=== PATIENT | female | born 1945 | race Caucasian/White ===

== ENCOUNTER 2021-01-25 06:24 | Inpatient (IN) ==
--- NOTE | 2020-12-28 09:11 | History & Physical Report ---
Date of Service December 28, 2020 Procedure: Bilateral total knee replacements Date of Surgery: 01-25-21 Assessment & Plan (1) Degenerative arthritis of knee, bilateral: Plan: Risks and benefits of procedure discussed in detail today, patient would like to proceed with Bilateral total knee replacements at [facility] as scheduled. will obtain medical clearance prior to surgery as well as obtain PATs at [facility]. Will place on Xarelto x 1 month post op, f/u 2 weeks post op for routine post-operative care and x-ray, sooner if having any problems. she would like to try to go to [facility] after her surgery. At this point in time, has failed conservative measures and would like to proceed with surgical intervention. The risks and benefits have been discussed including, but not limited to, risk of infection, nerve injury, stiffness, loss of motion, failure to improve, etc. Reasonable outcomes and options of treatment were discussed. An explanation of appropriate alternatives to the procedure that may be advantageous were discussed and their risks and benefits, as well as the risks and benefits of not proceeding with treatment. I offered to answer any additional inquiries concerning the treatment involved. All the patient's questions were answered. The patient is agreeable, understanding of the treatment plan and alternatives, and wishes to proceed with the treatment plan. History of Present Illness Chief Complaint: bilateral knee pain Primary Care Provider: Dong Lopez Florencia Pulido is a 75 year old female who complains of bilateral knee pain, presents for pre-op evaluation prior to bilateral total knee replacements by Dr Nolasco at [facility]. she complains of pain, decreased range of motion and stiffness in both of her knees. Currently the patient states that the symptoms are moderate-severe. The pain is described as aching, sharp and throbbing. Her symptoms are aggravated by ascending stairs, daily activities, first steps while awake walking. Prior NSAIDs include IBU and Aleve. she has been treated with previous visco and cortisone injections in the past without much relief. Allergies Allergy/AdvReac Type Severity Reaction Status Date / Time adhesive AdvReac Unknown Skin Verified 11/17/20 12:08 irritation with tape Home Medications Medication Instructions Recorded Confirmed Type Bone Health Packet Otc 1 dose PO QPM 11/16/20 11/16/20 History Calcium Lactate Otc 1 tab PO QPM 11/16/20 11/16/20 History Cyrupa Otc 2 tab PO QPM 11/16/20 11/16/20 History Dnenamin Otc 2 tab PO QPM 11/16/20 11/16/20 History Iodine Otc 2 tab PO QPM 11/16/20 11/16/20 History Ligaplex Otc 3 tab PO QPM 11/16/20 11/16/20 History Simplex Multivitamin Otc 2 tab PO QPM 11/16/20 11/16/20 History Soy Lecithin Otc 3 tab PO QPM 11/16/20 11/16/20 History Tuna Oil Otc 2 tab PO QPM 11/16/20 11/16/20 History Women's Mineral Otc 2 tab PO QPM 11/16/20 11/16/20 History anastrozole 1 mg tablet (Arimidex) 1 mg PO QPM 11/16/20 11/16/20 History aspirin 325 mg tablet 325 mg PO QPM 11/16/20 11/16/20 History duloxetine 30 mg capsule,delayed 90 mg PO QPM 11/16/20 11/16/20 History release (Cymbalta) thyroid (pork) 30 mg tablet 30 mg PO QAM 11/16/20 11/16/20 History ([place] Thyroid) Past Med/Surg History Medical History Anxiety Arthritis Asthma Stable, controlled Cancer Left breast s/p left breast lumptectomy (No arm restrictions per pt) Depression Factor 5 Leiden mutation, heterozygous Dx through genetic testing (d/t family hx) Hiatal hernia Hypothyroidism Obesity Surgical History History of arthroscopy R/L knee History of colonoscopy 2019 History of hysterectomy History of lumpectomy of left breast History of thumb surgery Family History Mother Family history of esophageal cancer Social History Smoking Status: Former smoker Second Hand Exposure: Yes (PARENTS SMOKED); Hx Alcohol Use: Yes Alcohol type: beer Hx Substance Use: No Preferred Language: Greek Communication Ability: Effective 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 Required: No Beliefs That Will Affect Care: None Current Living Situation: Spouse current occupational status: retired current occupation: RETIRED [employer] Feels Safe at Home: Yes Assistive Devices: Brace/Splint/Immobilizer and Glasses Review of Systems Review of Systems: All systems reviewed & are unremarkable except as noted in HPI & below Constitutional: no fever, no chills and no sweats Respiratory: no cough and no dyspnea Cardiovascular: no chest pain, no dyspnea and no orthopnea Gastrointestinal: no abdominal pain, no nausea and no vomiting Musculoskeletal: as per Subjective / HPI Physical Exam Physical Exam: HT: 4ft 11in WT: 72.8kg Constitutional: WD/WN, vitals as above no acute distress Respiratory: normal respiratory effort, lungs clear to auscultation no respiratory distress, no labored breathing and does not use accessory muscles Cardiovascular: RRR, no murmur, no edema Gastrointestinal (Abdomen): normal bowel sounds, soft, nontender, no hepatosplenomegaly Musculoskeletal: Bilateral knee Physical exam Overall patient has varus alignment bilaterally, there is no atrophy or ecchymosis noted, +1 suprapatellar effusion in both knees, positive tenderness to both medial and lateral joint lines right knee, more medial sided tenderness to the left knee. negative patellar apprehension, positive crepitation noted to both knees with active ROM. bilateral knees stable to valgus and varus stress, yahir negative, posterior drawer negative. Range of motion right knee 0/3/110, left knee 0/3/115. lower extremities are neurovascularly intact, calf soft and non tender, DP pulse +2 bilaterally. Results & Data Results & Data ([facility]) Diagnostic Findings Bilateral Knee X-ray: bilateral knee series confirm advanced degenerative changes bilateral knees, showing joint space narrowing, osteophyte formation and subchondral sclerosis. no acute bony pathology noted.
--- NOTE | 2021-01-17 11:23 | Anesthesiology Consultation ---
Date of Service January 17, 2021 Assessment & Plan (1) Encounter for pre-operative examination: Chart Review Chart Review: Acceptable Risk for Surgery (pending preop Covid testing result and DOS labs ) and Patient NOT seen in Pre Admission Testing -Preop labs out of date- will order CBC with diff, PRP and coags for DOS. Per nursing assessment 01/16/2021, patient resides in [facility]. 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 Traveled to [facility] 2-3 weeks ago to shop and visit family. Also traveled to [facility] and [facility] 2-3 weeks ago to visit family. No known Covid positive contacts or Covid related symptoms. No known Covid infection in the past 90 days. Patient is vaccinated for Covid. Preop Covid testing scheduled 01/23/21= will await results Per PCP note 12/13/2020 = " patient was seen on 12/11/2020 and has been found to be medically cleared for the proposed surgery." History Surgery Operation Date: 01/25/21 08:15 Proposed Procedures p Left Knee Total Knee Arthroplasty, Right Knee Total Knee Arthroplasty - Butch Nolasco DO Height/Weight Height: 4 ft 11 in Weight: 74.843 kg Allergies Allergy/AdvReac Type Severity Reaction Status Date / Time adhesive AdvReac Unknown Skin Verified 01/16/21 07:57 irritation with tape Medications Home Medications Medication Instructions Recorded Confirmed Last Taken Bone Health Packet Otc 1 dose PO QPM 11/16/20 01/16/21 Unknown Calcium Lactate Otc 1 tab PO QPM 11/16/20 01/16/21 Unknown Cyrupa Otc 2 tab PO QPM 11/16/20 01/16/21 Unknown Dnenamin Otc 2 tab PO QPM 11/16/20 01/16/21 Unknown Iodine Otc 2 tab PO QPM 11/16/20 01/16/21 Unknown Ligaplex Otc 3 tab PO QPM 11/16/20 01/16/21 Unknown Simplex Multivitamin Otc 2 tab PO QPM 11/16/20 01/16/21 Unknown Soy Lecithin Otc 3 tab PO QPM 11/16/20 01/16/21 Unknown Tuna Oil Otc 2 tab PO QPM 11/16/20 01/16/21 Unknown Women's Mineral Otc 2 tab PO QPM 11/16/20 01/16/21 Unknown anastrozole 1 mg tablet (Arimidex) 1 mg PO QPM 11/16/20 01/16/21 Unknown aspirin 325 mg tablet 325 mg PO QPM 11/16/20 01/16/21 Unknown duloxetine 30 mg capsule,delayed 90 mg PO QPM 11/16/20 01/16/21 Unknown release (Cymbalta) thyroid (pork) 30 mg tablet 30 mg PO QAM 11/16/20 01/16/21 Unknown ([place] Thyroid) Cbd Oil Otc 1 dose TOPICAL QAM 01/16/21 01/16/21 Unknown Past Medical History Medical History Anxiety Asthma A CHILD-NO INHALERS ADULT-Stable, controlled Cancer Left breast s/p left breast lumptectomy (No arm restrictions per pt) Depression Factor 5 Leiden mutation, heterozygous Dx through genetic testing (d/t family hx) GERD (gastroesophageal reflux disease) UNDER CONTROL Hiatal hernia Hypothyroidism Obesity Past Family History Family History Mother Family history of esophageal cancer Past Surgical History Surgical History History of anesthesia reaction EXTREME HEADACHE, RUNNY NOSE WITH LAST COLONOSCOPY 2019 GUCCI GASTRO History of arthroscopy R/L knee History of colonoscopy 2019 History of hysterectomy History of lumpectomy of left breast History of thumb surgery History of tonsillectomy Social History Smoking Status: Former smoker Do You Dip or Chew Tobacco: No Smoking End Date: QUIT 25 YRS AGO Hx Alcohol Use: Yes Alcohol type: beer alcohol intake frequency: a few times a month Hx Substance Use: No Testing Electrocardiogram Date: 11/21/20 Findings: + NSR @ (63 bpm) Normal EKG per cardio Chest X-Ray Date: 11/21/20 Trace bilateral pleural effusion. Linear density at bilateral lower lungs could represent atelectasis or scarring. (Report was forwarded to PCP for continuity of care per previous 11/21/20 anesthesia consultation)
[~2021-01-25 06:24] MED LIST: ACETAMINOPHEN 500 MG TAB PO SCH; CeleBREX 200 MG CAP PO SCH; FAMOTIDINE 20 MG TAB PO SCH; GABAPENTIN 300 MG CAP PO SCH; LR 500ML BOLUS, THEN 15ML/HR IV SCH; METOCLOPRAMIDE HCL 10 MG TABLET PO SCH; TRANEXAMIC ACID 1,000 MG **IV Intra-op IV SCH; TRANEXAMIC ACID 1,000 MG **IV Pre-op IV SCH; ceFAZolin 2000MG 2,000 MG/15 ML SYR IV SCH
[2021-01-25] MEDS ORDERED: EPINEPHrine INJ 1 MG/ML AMP ONE (06:36)
[2021-01-25] MEDS ORDERED: ROPIVACAINE 0.5% 5 MG/ML 30 ML VIAL ONE (06:36)
[2021-01-25] MEDS ORDERED: BUPIVACAINE 0.5 % 5 MG/1 ML PF 10ML VIAL ONE ×2 (06:36→08:49)
[2021-01-25 07:27] LABS: Basophils # (auto) 0.06 K/uL (0-0.2); Basophils % (auto) 1.2 %; Eosinophils # (auto) 0.26 K/uL (0-0.5); Hematocrit (blood only) 40.6 % (37-47); Hemoglobin 13.3 g/dL (12.0-16.0); Lymphocytes # (auto) 1.49 K/uL (1.2-3.4); Lymphocytes % (auto) 28.7 %; Mean Corpuscular Hemoglobin 30.4 pg (25-34); Mean Corpuscular Volume 92.7 fL (80-100); Mean Platelet Volume 9.5 fL (7.4-10.4); Monocytes # (auto) 0.47 K/uL (0.11-0.59); Neutrophils # (auto) 2.92 K/uL (1.4-6.5); Neutrophils % (auto) 56.1 %; Platelet Count 273 K/uL (130-400); RDW Coefficient of Variation 14.9 % (11.5-14.5); Red Blood Count 4.38 M/uL (4.2-5.4)
[2021-01-25 07:43] LABS: Partial Thromboplastin Time 26.1 Seconds (21.0-31.0); Prothrombin Time 9.8 Seconds (9.0-12.0)
[2021-01-25 07:45] LABS: BUN Creatinine Ratio 22.4 (10-20); Calcium 9.7 mg/dl (8.5-10.1); Creatinine Clr Calc Pharmacy 50.1 ml/min; Est GFR (African American) 76.1 ml/min; Est GFR (Non-African American) 65.6 ml/min; Potassium 4.1 mmol/L (3.5-5.1)
--- NOTE | 2021-01-25 08:39 | History & Physical Bridge Note ---
Date of Service January 25, 2021 History & Physical Bridge Note I have examined the patient, reviewed the History & Physical and in the interval since the performance of the History & Physical I have noted the following changes of clinical significance: no changes noted
[2021-01-25 08:41] LABS: Mean Corpuscular Hgb Conc 32.8 g/dL (32-36)
[2021-01-25] MEDS ORDERED: PROPOFOL IV EMULSION 10 MG/ML 20 ML VIAL IV ONE ×3 (08:45→10:21)
[2021-01-25] MEDS ORDERED: MIDAZOLAM HCL 1 MG/ML 2ML VIAL ONE (08:46)
[2021-01-25] MEDS ORDERED: fentaNYL citrate 100 MCG/2 ML VIAL ONE (08:46)
[2021-01-25] MEDS ORDERED: ATROPINE SULFATE 0.1 MG/ML 10ML SYR IV PRN (08:59)
[2021-01-25] MEDS ORDERED: ONDANSETRON INJ 2 MG/ML 2 ML VIAL IV PRN ×2 (08:59→15:00)
[2021-01-25] MEDS ORDERED: ePHEDrine sulfate 50 MG/ML AMP IV PRN (08:59)
[2021-01-25] MEDS ORDERED: HYDROmorphone INJ 1 MG/ML SYRINGE IV PRN (08:59)
[2021-01-25] MEDS ORDERED: fentaNYL citrate 100 MCG/2 ML VIAL IV PRN (08:59)
[2021-01-25] MEDS ORDERED: ORTHO JOINT ANESTHETIC ONE (09:42)
[2021-01-25] MEDS ORDERED: GLYCOPYRROLATE 0.2 MG/ML VIAL ONE (10:21)
[2021-01-25] MEDS: ROPIVACAINE 0.5% HCL/PF 150 MG, BUPIVACAINE 0.75% MPF 20 ML, EPINEPHrine 30MG/30ML (OR ... INFIL SCH ×2 (11:36)
--- NOTE | 2021-01-25 11:54 | Operative Report ---
Post Operative Report Pre & Post Diagnosis Operation Date: 01/25/21 08:45 Pre-Op Diagnosis: Left Knee Osteoarthritis, Right Knee Osteoarthritis Post-Op Diagnosis: Left Knee Osteoarthritis, Right Knee Osteoarthritis I identified the patient and participated in the time-out.: Yes Procedure Operation Date: 01/25/21 08:45 Actual Procedures p Left Knee Total Knee Arthroplasty, Right Knee Total Knee Arthroplasty(Bilateral) utilizing [employer]uent[employer] Nephew patient matched total knee arthroplasty size 3 femur 3 tibia right size 10 polytwenty 9 oval patella left femur size 3 tibia size 3 polysize 1229 oval patella- Butch Nolasco DO Surgeon Butch Nolasco DO C.O.D. Audit Clerk Jose VARGAS Estimated Blood Loss 5 Findings Consistent with Post-Op Diagnosis Patient presents with severe end-stage DJD bilateral knees for bilateral total knee arthroplasty she had [id number] varus alignment subchondral cystic changes marginal osteophytes with eburnated exposed bone bilaterally moderate to large Specimens Bone and cartilage Drains Medium bore Hemovac Anesthesia Type MAC Spinal Regional Complications none Disposition Accompanied Patient To Recovery: No Disposition: Recovery Room Indications Patient presents for bilateral total knee arthroplasty failing after failed attempted conservative management physical therapy anti-inflammatories relative rest activity modification corticosteroid injection viscosupplementation Description of Procedure After proper prepping and draping of the bilateral lower extremities, an anterior midline incision was made over the region of the extensor extensor mechanism of the left knee. After meticulous hemostasis was obtained and maintained in subcutaneous tissues a medial parapatellar incision was made The patella was subluxed lateralward the medial lateral gutter were cleaned from any hypertrophic synovitis and scar tissue of the distal femoral block was placed and the distal femoral osteotomy cut was made subsequently the chamfers anterior and posterior osteotomy cuts were made utilizing the 4-in-1 block the tibia was subsequently subluxed anteriorward medial and ateral meniscal remnants were excised in their entirety remnants of the anterior and posterior cruciate ligaments were excised in their entirety excellent exposure of the proximal t ibia was obtained the tibial osteotomy guide was placed on the proximal tibial osteotomy cut was made once again the knee was irrigated with copious amounts of sterile saline solution the patella was subsequently everted lateralward thickened scar tissue around the patella was removed the patella was subsequently cut utilizing a freehand technique and was drilled prepared for final preparation and placement of patella socially flexion-extension gaps were checked and the equal and symmetric trials were placed to the appropriate femoral and tibial trials with poly-spacer being placed for equal flexion and extension gaps and full range of motion including extension to 0 and flexion to 140 the trial components after having been taken to recovery range of motion was subsequently removed meticulous hemostasis was obtained and maintained subsequently a knee block injection of joint cocktail including ropivacaine 0.5% 150 mg. Bupivacaine 0.5% epinephrine 1-200,030 mL's toradol 30 mg dexamethasone 4 mg ketamine 10 mg clonidine 100 micrograms normal saline solution 30 mg was infiltrated into the soft tissues of the posterior knee medial lateral gutters and periosteal synovium special attention was paid to protect neurovascular structures at all times subsequently trial components having been removed the knee was irrigated with sterile saline solution. debris was removed the proximal tibia was subsequently prepared and was made ready for the placement of the tibial component tibial component was also cemented and tamped into position the femoral component was subsequently placed and cemented in the position the patellar component was subsequently cemented in position because hemostasis once again obtained and maintained wound having been thoroughly irrigated with debridement and debridement lavage was performed as well as a medial parapatellar incision closed with #1 Vicryl in interrupted fashion subcutaneous was closed with #2 Vicryl skin was closed with skin clips Next, an anterior midline incision was made over the region of the extensor extensor mechanism of the right knee. After meticulous hemostasis was obtained and maintained in subcutaneous tissues a medial parapatellar incision was made The patella was subluxed lateralward the medial lateral gutter were cleaned from any hypertrophic synovitis and scar tissue of the distal femoral block was placed and the distal femoral osteotomy cut was made subsequently the chamfers anterior and posterior osteotomy cuts were made utilizing the 4-in-1 block the tibia was subsequently subluxed anteriorward medial and ateral meniscal remnants were excised in their entirety remnants of the anterior and posterior cruciate ligaments were excised in their entirety excellent exposure of the proximal tibia was obtained the tibial osteotomy guide was placed on the proximal tibial osteotomy cut was made once again the knee was irrigated with copious amounts of sterile saline solution the patella was subsequently everted lateralward thickened scar tissue around the patella was removed the patella was subsequently cut utilizing a freehand technique and was drilled prepared for final preparation and placement of patella socially flexion-extension gaps were checked and the equal and symmetric trials were placed to the appropriate femoral and tibial trials with poly-spacer being placed for equal flexion and extension gaps and full range of motion including extension to 0 and flexion to 140 the trial components after having been taken to recovery range of motion was subsequently removed meticulous hemostasis was obtained and maintained subsequently a knee block injection of joint cocktail including ropivacaine 0.5% 150 mg. Bupivacaine 0.5% epinephrine 1-200,030 mL's toradol 30 mg dexamethasone 4 mg ketamine 10 mg clonidine 100 micrograms normal saline solution 30 mg was infiltrated into the soft tissues of the posterior knee medial lateral gutters and periosteal synovium special attention was paid to protect neurovascular structures at all times subsequently trial components having been removed the knee was irrigated with sterile saline solution. debris was removed the proximal tibia was subsequently prepared and was made ready for the placement of the tibial component tibial component was also cemented and tamped into position the femoral component was subsequently placed and cemented in the position the patellar component was subsequently cemented in position because hemostasis once again obtained and maintained wound having been thoroughly irrigated with debridement and debridement lavage was performed as well as a medial parapatellar incision closed with #1 Vicryl in interrupted fashion subcutaneous was closed with #2 Vicryl skin was closed with skin clips.. PA-C was necessary for prepping and drapping as well as wound closure of deep fascia Sub cutaneous tissue and skin and was necessary for the case. A sterile compressive dressings were placed, patient was taken to recovery in stable condition of report dictated by Gaurav I attest to the content of the Intraoperative Record and any orders documented therein. Any exceptions are noted below. I attest to the content of the Intraoperative Record and any orders documented therein. Any exceptions are noted below.
--- NOTE | 2021-01-25 12:50 | Anesthesiology Progress Note ---
Date of Service January 25, 2021 Anesthesia Post Procedure Vital Signs Vital Signs: Temp Pulse Resp BP Pulse Ox 01/25/21 12:40 64 15 124/66 100 01/25/21 12:32 36 C L 64 18 96/66 L 97 Pain Intensity Bilateral Knee: Pain Intensity: 1 Transfer of Care Handoff Completed per policy Notes Mental Status: alert / awake / arousable and participated in evaluation Patient Amnestic to Procedure: Yes Nausea / Vomiting: adequately controlled Pain: adequately controlled Airway Patency, RR, SpO2: stable & adequate BP & HR: stable & adequate Hydration State: stable & adequate Neuraxial Anesthesia: was administered and sensory block is resolving Anesthetic Complications: no major complications apparent and Pt Satisfied with anesthetic care
--- NOTE | 2021-01-25 13:02 | XRay Report ---
TWO VIEWS RIGHT KNEE CLINICAL HISTORY: Postoperative examination. FINDINGS: AP and crosstable lateral portable views of the right knee are obtained. A right knee arthr oplasty is in near anatomic alignment. There has been undersurface remodeling of the patella. No acut e fracture is seen. There are expected postoperative changes around the knee including a surgical ronak in, soft tissue edema, and subcutaneous gas. IMPRESSION: Expected postoperative changes status post right knee arthroplasty. No acute fracture is seen. ACT 112: Negative or not required by law. Electronically signed by: Eros Segoiva M.D. 01/25/2021 1:00 PM
--- NOTE | 2021-01-25 13:02 | XRay Report ---
XR knee LT 1 or 2V routine CLINICAL HISTORY: Surgical Post Op COMPARISON: None. DISCUSSION: Status post total left knee arthroplasty. Prosthetic joint and appear to be in expected position. Mild subcutaneous emphysema and surgical drainage are seen. IMPRESSION: Postoperative changes as detailed above. ACT 112: Negative or not required by law. The above report was generated using voice recognition software. It may contain grammatical, syntax o r spelling errors. Electronically signed by: Donna Gomez DO 01/25/2021 1:01 PM
[2021-01-25] MEDS ORDERED: NALOXONE HCL 0.4 MG/1 ML VIAL/CARP IV PRN (15:00)
[2021-01-25] MEDS ORDERED: HYDROmorphone INJ 0.5 MG/0.5 ML SYR IV PRN (15:00)
[2021-01-25] MEDS ORDERED: MAGNESIUM HYDROXIDE SUSP 30 ML UDC PO PRN (15:00)
[2021-01-25] MEDS ORDERED: bisacodyL 10 MG SUPP PR PRN (15:00)
[2021-01-25] MEDS: SODIUM CHLORIDE 0.9% 1000ML 1,000 ML IV SCH (15:55)
[2021-01-25] MEDS: ACETAMINOPHEN 500 MG TAB PO SCH ×2 (16:18→21:06)
[2021-01-25] MEDS: FERROUS GLUCONATE 324 MG TAB PO SCH (16:19)
[2021-01-25] MEDS: ceFAZolin 2000MG 2,000 MG/15 ML SYR IV SCH (17:44)
[2021-01-25] MEDS: DULoxetine HCL 30 MG CAP PO SCH (19:30)
[2021-01-25] MEDS: ANASTROZOLE 1 MG TAB PO SCH (19:31)
[2021-01-25] MEDS: DOCUSATE SODIUM 100 MG CAP PO SCH (19:31)
[2021-01-25] MEDS: SENNA 8.6 MG TAB PO SCH (19:31)
[2021-01-25] MEDS ORDERED: ASPIRIN 325 MG ECTAB PO SCH (21:00)
[2021-01-26] MEDS: SODIUM CHLORIDE 0.9% 1000ML 1,000 ML IV SCH (02:29)
[2021-01-26] MEDS: ceFAZolin 2000MG 2,000 MG/15 ML SYR IV SCH (02:31)
[2021-01-26] MEDS: oxyCODONE HCL IR 5 MG TAB (IMMEDIATE RELEASE) PO PRN ×5 (02:47→19:44)
[2021-01-26] MEDS: ARMOUR THYROID 30 MG TAB PO SCH (06:12)
[2021-01-26] MEDS: ACETAMINOPHEN 500 MG TAB PO SCH ×3 (06:13→21:30)
[2021-01-26 08:23] LABS: Hematocrit (blood only) 34.9 % (37-47); Hemoglobin 11.4 g/dL (12.0-16.0); Mean Corpuscular Hemoglobin 29.5 pg (25-34); Mean Corpuscular Hgb Conc 32.7 g/dL (32-36); Mean Corpuscular Volume 90.4 fL (80-100); Mean Platelet Volume 9.3 fL (7.4-10.4); Platelet Count 270 K/uL (130-400); RDW Standard Deviation 49.2 fL (36.4-46.3); Red Blood Count 3.86 M/uL (4.2-5.4); White Blood Count 8.69 K/uL (4.8-10.8)
[2021-01-26] MEDS: DOCUSATE SODIUM 100 MG CAP PO SCH ×2 (08:54→20:30)
[2021-01-26] MEDS: FERROUS GLUCONATE 324 MG TAB PO SCH ×2 (08:54→17:52)
[2021-01-26] MEDS: MULTIVITAMIN TAB PO SCH (08:54)
[2021-01-26] MEDS: RIVAROXABAN 10 MG TABLET PO SCH (08:54)
[2021-01-26 09:00] LABS: BUN Creatinine Ratio 19.3 (10-20); Calcium 8.8 mg/dl (8.5-10.1); Creatinine Clr Calc Pharmacy 51.3 ml/min; Est GFR (African American) 78.2 ml/min; Est GFR (Non-African American) 67.5 ml/min; Potassium 3.9 mmol/L (3.5-5.1)
--- NOTE | 2021-01-26 09:10 | Orthopedic Progress Note ---
Date of Service January 26, 2021 Assessment & Plan (1) Degenerative arthritis of knee, bilateral: Plan: Postop day one status post bilateral total knee arthroplasty. PT/OT protocols. Weightbearing as tolerated. DVT prophylaxis-rivaroxaban daily, SCDs, JUAN stone. Pain management as written. [facility] planning[facility]. Case management waiting for PT/OT results from this morning. Patient may need to consider halfway facility as a backup. Admission and Anticipated Discharge Date Admission Date: January 25, 2021 Subjective Postop day one Patient sitting up in her chair at the bedside. States that she feels well this morning. She has been up several times earlier this morning to the bathroom. She is having some pain but taking her pain medications which are helping. She denies any shortness of breath, chest pain, lightheadedness. No other complaints. Physical Exam Physical Exam: Things are clean, dry, and intact bilaterally. Calves are soft and nontender. Neurovascular is intact. Toes are mobile. She has good dorsiflexion and plantarflexion of the left foot with a little bit of weakness on the right foot. Most likely secondary from intraoperative injection. Hemovac drainage was 100 mL from the right and left drain from the previous shift. Results & Data ([facility]) Vital Signs (Past 12 Hours) Vital Signs Temp Pulse Pulse Resp BP Pulse Ox 01/26/21 07:12 36.7 C 62 16 120/77 94 01/26/21 02:52 36.9 C 63 16 109/67 93 01/25/21 23:21 36.7 C 61 18 125/83 93 Laboratory Results Laboratory Results WBC 8.69 K/uL (4.8-10.8) 01/26/21 08:05 RBC 3.86 M/uL (4.2-5.4) L 01/26/21 08:05 Hgb 11.4 g/dL (12.0-16.0) L 01/26/21 08:05 Hct 34.9 % (37-47) L 01/26/21 08:05 MCV 90.4 fL (80-100) 01/26/21 08:05 MCH 29.5 pg (25-34) 01/26/21 08:05 MCHC 32.7 g/dL (32-36) 01/26/21 08:05 RDW Std Deviation 49.2 fL (36.4-46.3) H 01/26/21 08:05 RDW Coeff of Justin 15.0 % (11.5-14.5) H 01/26/21 08:05 Plt Count 270 K/uL (130-400) 01/26/21 08:05 MPV 9.3 fL (7.4-10.4) 01/26/21 08:05 Immature Gran % (Auto) 0.0 % 01/25/21 07:12 Neut % (Auto) 56.1 % 01/25/21 07:12 Lymph % (Auto) 28.7 % 01/25/21 07:12 Elk % (Auto) 9.0 % 01/25/21 07:12 Eos % (Auto) 5.0 % 01/25/21 07:12 Baso % (Auto) 1.2 % 01/25/21 07:12 Neut # (Auto) 2.92 K/uL (1.4-6.5) 01/25/21 07:12 Lymph # (Auto) 1.49 K/uL (1.2-3.4) 01/25/21 07:12 Elk # (Auto) 0.47 K/uL (0.11-0.59) 01/25/21 07:12 Eos # (Auto) 0.26 K/uL (0-0.5) 01/25/21 07:12 Baso # (Auto) 0.06 K/uL (0-0.2) 01/25/21 07:12 Immature Gran # (Auto) 0.00 K/uL (0.00-0.02) 01/25/21 07:12 PT 9.8 Seconds (9.0-12.0) 01/25/21 07:12 INR 1.0 (0.9-1.1) 01/25/21 07:12 APTT 26.1 Seconds (21.0-31.0) 01/25/21 07:12 PTT Ratio 1.0 01/25/21 07:12 Sodium 139 mmol/L (136-145) 01/26/21 08:05 Potassium 3.9 mmol/L (3.5-5.1) 01/26/21 08:05 Chloride 108 mmol/L (98-107) H 01/26/21 08:05 Carbon Dioxide 26 mmol/L (21-32) 01/26/21 08:05 Anion Gap 5.0 (3-11) 01/26/21 08:05 BUN 17 mg/dl (7-18) 01/26/21 08:05 Creatinine 0.85 mg/dl (0.6-1.2) 01/26/21 08:05 Est Cr Clr Drug Dosing 51.3 ml/min 01/26/21 08:05 Est GFR ( Amer) 78.2 ml/min 01/26/21 08:05 Est GFR (Non-Af Amer) 67.5 ml/min 01/26/21 08:05 BUN/Creatinine Ratio 19.3 (10-20) 01/26/21 08:05 Glucose 111 mg/dl (70-99) H 01/26/21 08:05 Calcium 8.8 mg/dl (8.5-10.1) 01/26/21 08:05 COVID-19 Eval Order Covid19 IDNow [facility] 01/25/21 07:05 SARS-CoV-2, RNA, NAAT NEGATIVE (NEGATIVE) 01/25/21 07:05 Blood Type O Positive 01/25/21 07:12 Antibody Screen NEGATIVE 01/25/21 07:12
[2021-01-26] MEDS ORDERED: traMADol HCL 50 MG TABLET PO PRN (12:09)
[2021-01-26] MEDS: traMADol HCL 50 MG TABLET PO PRN (12:51)
--- NOTE | 2021-01-26 16:49 | Hospitalist Consultation ---
Date of Consultation January 26, 2021 Assessment & Plan (1) History of total bilateral knee replacement: * POD #1 * Recommend adequate pain control, PT/OT, incentive spirometry, and postoperati ve DVT prophylaxis. Agree with Xarelto given history of breast CA and factor V Leiden. Would encourage 14 days but at discretion of attending physician * Patient noted to be on aspirin 325 mg daily. This is a home medication and has been resumed. Will hold this for now. Okay to hold while on Xarelto. With resumption, patient may take an 81 mg tablet as opposed to 325 to decrease risk of GI irritation (2) Breast CA: * Okay to continue Arimidex (3) Factor V deficiency: * Without personal history of DVT/PE * See above (4) Depression: continue home Cymbalta (5) Obesity: BMI 33.4 needs weight loss counseling, defer to PCP (6) Hypothyroidism: continue home [place] thyroid no available STH in our system follow up with PCP * We will sign off on this patient from a medical standpoint; however, do not hesitate to reconsult should a problem arise * Case management on board to help facilitate placement * Thank you for allowing me to participate in the care of this patient Supervising Physician Co-Signing Physician Notes ALICIA Supervision Note: I personally saw and examined the patient. I verified all bedolla points and agree with ALICIA Deal with the following exceptions and/or additions: S-patient feeling very well other than pain in her knees. Denies any other symptoms. She is currently ambulating to the bathroom with assistance. O- Vitals reviewed Gen: AAOx3, NAD HEENT: Anicteric sclerae, EOMI CV: RRR no mgr nl S1S2 Pulm: CTAB no wcr Ext: Bilateral knees in dressings with Hemovacs draining bloody drainage Skin: No rashes, warm/dry Neuro: Full strength throughout A/E-[id number][age]old female with a history of breast cancer, factor V Leiden hete rozygous mutation, depression, obesity, and OA here status post bilateral TKA Doing very well postoperatively Agree with Xarelto for DVT prophylaxis Hold aspirin while on Xarelto Okay to continue Arimidex-can be prothrombotic, however she will be on Xarelto Hospitalist service will sign off-please feel free to reconsult if new or acute issues arise History of Present Illness Reason for Consultation: Medical management Attending Physician: Butch Nolasco DO History of Present Illness Mrs. Hunt is a 75-year-old white female with a past medical history of breast CA (2 years ago) s/p left lumpectomy on Arimidex, and factor V Leiden without a personal history of DVT/PE. She was seen in consultation for medical management following a bilateral total knee arthroplasty done on 01/25. Patient had an uneventful perioperative course. EBL: 5 mL currently, pain is adequately controlled. She is tolerating pain medication without ill effects. She has been ordered Xarelto for DVT prophylaxis given her history of breast CA and factor V Leiden. Patient on aspirin 325 mg daily (a home medication that has been resumed). Patient lives in a two-story home with her . 13 steps. Hopeful to go to acute rehab. Allergies Allergy/AdvReac Type Severity Reaction Status Date / Time adhesive AdvReac Unknown Skin Verified 01/25/21 07:14 irritation with tape Home Medications Medication Instructions Recorded Confirmed Type Bone Health Packet Otc 1 dose PO QPM 11/16/20 01/25/21 History Calcium Lactate Otc 1 tab PO QPM 11/16/20 01/25/21 History Cyrupa Otc 2 tab PO QPM 11/16/20 01/25/21 History Dnenamin Otc 2 tab PO QPM 11/16/20 01/25/21 History Iodine Otc 2 tab PO QPM 11/16/20 01/25/21 History Ligaplex Otc 3 tab PO QPM 11/16/20 01/25/21 History Simplex Multivitamin Otc 2 tab PO QPM 11/16/20 01/25/21 History Soy Lecithin Otc 3 tab PO QPM 11/16/20 01/25/21 History Tuna Oil Otc 2 tab PO QPM 11/16/20 01/25/21 History Women's Mineral Otc 2 tab PO QPM 11/16/20 01/25/21 History anastrozole 1 mg tablet (Arimidex) 1 mg PO QPM 11/16/20 01/25/21 History aspirin 325 mg tablet 325 mg PO QPM 11/16/20 01/25/21 History duloxetine 30 mg capsule,delayed 90 mg PO QPM 11/16/20 01/25/21 History release (Cymbalta) thyroid (pork) 30 mg tablet 30 mg PO QAM 11/16/20 01/25/21 History ([place] Thyroid) Cbd Oil Otc 1 dose TOPICAL QAM 01/16/21 01/25/21 History Patient History Medical History (Updated 01/26/21 @ 18:29 by Jeane Ramon MD) Anxiety Asthma A CHILD-NO INHALERS ADULT-Stable, controlled Cancer Left breast s/p left breast lumptectomy (No arm restrictions per pt) Depression Factor 5 Leiden mutation, heterozygous Dx through genetic testing (d/t family hx) GERD (gastroesophageal reflux disease) UNDER CONTROL Hiatal hernia Hypothyroidism Obesity Surgical History (Updated 01/26/21 @ 16:46 by Joanne Deal PA-C) History of anesthesia reaction EXTREME HEADACHE, RUNNY NOSE WITH LAST COLONOSCOPY 2018 GUCCI GASTRO History of arthroscopy R/L knee History of colonoscopy 2019 History of hysterectomy History of lumpectomy of left breast History of thumb surgery History of tonsillectomy Family History Mother Family history of esophageal cancer Social History Smoking Status: Former smoker Smoking End Date: QUIT 25 YRS AGO; Second Hand Exposure: Yes (PARENTS SMOKED); Do You Dip or Chew Tobacco: No; Hx Alcohol Use: Yes Alcohol type: beer Hx Substance Use: No Preferred Language: Greenlandic Communication Ability: Effective Plater Helper Required: No Beliefs That Will Affect Care: None marital status: Current Living Situation: Spouse current occupational status: retired 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 Physical Exam Physical Exam: General: Resting comfortably in her hospital bed. Appears younger than stated age. NAD. Neck: No JVD. Negative hepatojugular reflex Cardiac: RRR with 1/6 SHAWN Lungs: CTA without W/R/R Abdomen: Normoactive X4. Soft and nontender in all quadrants. Extremities: Harshal wrap noted to bilateral knee. Dressing is dry and intact. Bilateral Hemovac in place. Distal pulses to the bilateral lower extremities are intact and symmetrical bilaterally. Capillary refill +2. Negative Homans' sign. No calf tenderness. Neuro: A&O X4 cranial nerves II through XII are grossly intact no focal neuro deficits Skin: No obvious skin lesions or rashes Results & Data Results & Data ([facility]) Vital Signs (Past 12 Hours) Vital Signs Temp Pulse Resp BP Pulse Ox 01/26/21 15:06 36.6 C 64 16 125/72 95 01/26/21 07:12 36.7 C 62 16 120/77 94 Laboratory Results 01/26/21 08:05 01/26/21 08:05 PG Care Time/CCT Total # of Minutes Spent Total Time Spent with Patient: Total time spent is greater than 50% in coordination of care (as documented) at patient's floor/unit and/or counseling patient: [place] [address] Inpt Consult Level 5 Patient Type New Medical Decision Making Moderate Complexity Diagnoses History of total bilateral knee replacement Z96.653 Breast CA C50.919 Factor V deficiency D68.2 Depression F32.9 Obesity E66.9 Hypothyroidism E03.9
[2021-01-26] MEDS: DULoxetine HCL 30 MG CAP PO SCH (20:30)
[2021-01-26] MEDS: SENNA 8.6 MG TAB PO SCH (20:30)
[2021-01-26] MEDS: ANASTROZOLE 1 MG TAB PO SCH (20:30)
[2021-01-27] MEDS: ARMOUR THYROID 30 MG TAB PO SCH (05:38)
[2021-01-27] MEDS: ACETAMINOPHEN 500 MG TAB PO SCH ×3 (05:38→21:22)
[2021-01-27] MEDS: traMADol HCL 50 MG TABLET PO PRN ×3 (06:22→20:30)
[2021-01-27] MEDS: oxyCODONE HCL IR 5 MG TAB (IMMEDIATE RELEASE) PO PRN (09:18)
[2021-01-27] MEDS: MULTIVITAMIN TAB PO SCH (09:18)
[2021-01-27] MEDS: FERROUS GLUCONATE 324 MG TAB PO SCH ×2 (09:19→16:49)
[2021-01-27] MEDS: DOCUSATE SODIUM 100 MG CAP PO SCH ×2 (09:19→20:31)
[2021-01-27] MEDS: RIVAROXABAN 10 MG TABLET PO SCH (09:19)
--- NOTE | 2021-01-27 10:46 | Orthopedic Progress Note ---
Date of Service January 27, 2021 Assessment & Plan (1) Degenerative arthritis of knee, bilateral: Plan: Postop day 2 status post bilateral total knee arthroplasty. PT/OT protocols. Weightbearing as tolerated. DVT prophylaxis-rivaroxaban daily, JUAN Nascimento. Pain management as written. DC planning-rehab versus [facility] facility. Case management working on authorizations. Admission and Anticipated Discharge Date Admission Date: January 25, 2021 Subjective Postop day 2 Patient just finishing up her physical therapy session. She is sitting in her chair at the bedside. She states she is feeling well today. She is having some soreness in her knees secondary to just getting through with her physical therapy. Otherwise she states she feels fine. Denies shortness of breath, chest pain, lightheadedness. Denies calf pain. Physical Exam Physical Exam: Incisions are clean, dry, and intact. She has some mild erythema around the incisions which is common for the subcuticular stitch in the mesh/dermabond glue. Calves are soft and nontender. Neurovascular intact. Toes are mobile. Results & Data ([facility]) Vital Signs (Past 12 Hours) Vital Signs Temp Pulse Resp BP Pulse Ox 01/27/21 08:09 36.5 C 73 18 131/81 94 01/26/21 23:01 36.8 C 72 18 125/75 96
[2021-01-27] MEDS: DULoxetine HCL 30 MG CAP PO SCH (16:50)
[2021-01-27] MEDS ORDERED: Nursing to Pharmacy Communication SCH (17:00)
[2021-01-27] MEDS: SENNA 8.6 MG TAB PO SCH (20:31)
[2021-01-27] MEDS: ANASTROZOLE 1 MG TAB PO SCH (20:31)
[2021-01-28] MEDS: ACETAMINOPHEN 500 MG TAB PO SCH ×3 (05:46→21:09)
[2021-01-28] MEDS: ARMOUR THYROID 30 MG TAB PO SCH (05:46)
[2021-01-28] MEDS: MULTIVITAMIN TAB PO SCH (07:47)
[2021-01-28] MEDS: DOCUSATE SODIUM 100 MG CAP PO SCH ×2 (07:47→21:09)
[2021-01-28] MEDS: FERROUS GLUCONATE 324 MG TAB PO SCH ×2 (07:47→17:21)
[2021-01-28] MEDS: RIVAROXABAN 10 MG TABLET PO SCH (07:48)
--- NOTE | 2021-01-28 08:47 | Orthopedic Progress Note ---
Date of Service January 28, 2021 Assessment & Plan (1) Degenerative arthritis of knee, bilateral: Plan: Postop day 3 status post bilateral total knee arthroplasty. PT/OT protocols. Weightbearing as tolerated. DVT prophylaxis-rivaroxaban daily, JUAN Nascimento. Pain management as written. DC planning-rehab versus [facility] facility. Authorizations pending. Waiting........... Admission and Anticipated Discharge Date Admission Date: January 27, 2021 Subjective Postop day 3 Patient doing well. She is sitting up in her chair at the bedside. No complaints this morning. Patient states she had a little bit of drainage from her drain sites but otherwise she is doing well. Pain is controlled. Denies shortness of breath, chest pain, lightheadedness. Physical Exam Physical Exam: Incisions are clean, dry, and intact. Swelling of the knee is consistent with surgery. Calves are soft and nontender. Neurovascular intact. Toes are mobile. Results & Data ([facility]) Vital Signs (Past 12 Hours) Vital Signs Temp Pulse Resp BP Pulse Ox 01/28/21 07:32 36.6 C 90 18 106/73 95 01/28/21 03:24 36.7 C 85 18 132/72 95
[2021-01-28] MEDS: oxyCODONE HCL IR 5 MG TAB (IMMEDIATE RELEASE) PO PRN (11:32)
[2021-01-28] MEDS: DULoxetine HCL 30 MG CAP PO SCH (17:20)
[2021-01-28] MEDS: traMADol HCL 50 MG TABLET PO PRN ×2 (17:26→22:19)
[2021-01-28] MEDS: ANASTROZOLE 1 MG TAB PO SCH (21:09)
[2021-01-28] MEDS: SENNA 8.6 MG TAB PO SCH (21:10)
[2021-01-29] MEDS: ACETAMINOPHEN 500 MG TAB PO SCH ×3 (05:59→21:08)
[2021-01-29] MEDS: ARMOUR THYROID 30 MG TAB PO SCH (05:59)
[2021-01-29] MEDS: FERROUS GLUCONATE 324 MG TAB PO SCH ×2 (07:39→17:10)
[2021-01-29] MEDS: traMADol HCL 50 MG TABLET PO PRN ×2 (07:39→14:25)
[2021-01-29] MEDS: RIVAROXABAN 10 MG TABLET PO SCH (07:39)
[2021-01-29] MEDS: DOCUSATE SODIUM 100 MG CAP PO SCH ×2 (07:39→21:08)
[2021-01-29] MEDS: MULTIVITAMIN TAB PO SCH (07:39)
--- NOTE | 2021-01-29 08:42 | Orthopedic Progress Note ---
Date of Service January 29, 2021 Assessment & Plan (1) Degenerative arthritis of knee, bilateral: Plan: Postop day 4 status post bilateral total knee arthroplasty. PT/OT protocols. Weightbearing as tolerated. DVT prophylaxis-rivaroxaban daily, SCDs, JUAN stone. Pain management as written. DC planning-rehab versus intermediate facility. Authorizations pending. Admission and Anticipated Discharge Date Admission Date: January 27, 2021 Subjective Postop day 4 Patient sitting in her chair at the bedside. States she had a fair amount of pain last night but was relieved with pain medication. Feeling better this morning. Feels that she has a little bit of increased swelling in her legs today. We discussed that with increased ambulation time, she may see some increase swelling around the knees which may translate either distally or proximally. She currently denies posterior thigh pain or calf pain. No other complaints. She is hoping that she will be approved for [facility] today. We discussed the probabilities of rehab versus intermediate facility. Patient is understanding. Physical Exam Physical Exam: Incisions remain clean, dry, and intact. Calves are soft and nontender. Neurovascular intact. Toes are mobile. No overt swelling of the ankles at this time. Homans is negative. Results & Data ([facility]) Vital Signs (Past 12 Hours) Vital Signs Temp Pulse Resp BP Pulse Ox 01/29/21 06:33 36.8 C 84 18 103/69 96 01/28/21 22:45 37.0 C 79 18 107/68 97
[2021-01-29] MEDS: DULoxetine HCL 30 MG CAP PO SCH (17:10)
[2021-01-29] MEDS: SENNA 8.6 MG TAB PO SCH (21:08)
[2021-01-29] MEDS: ANASTROZOLE 1 MG TAB PO SCH (21:08)
[2021-01-29] MEDS: oxyCODONE HCL IR 5 MG TAB (IMMEDIATE RELEASE) PO PRN (21:09)
[2021-01-30] MEDS: ARMOUR THYROID 30 MG TAB PO SCH (05:43)
[2021-01-30] MEDS: ACETAMINOPHEN 500 MG TAB PO SCH ×2 (05:44→13:16)
[2021-01-30] MEDS: oxyCODONE HCL IR 5 MG TAB (IMMEDIATE RELEASE) PO PRN (05:46)
[2021-01-30] MEDS: RIVAROXABAN 10 MG TABLET PO SCH (08:06)
[2021-01-30] MEDS: FERROUS GLUCONATE 324 MG TAB PO SCH (08:06)
[2021-01-30] MEDS: MULTIVITAMIN TAB PO SCH (08:06)
[2021-01-30] MEDS: DOCUSATE SODIUM 100 MG CAP PO SCH (08:06)
--- NOTE | 2021-01-30 09:25 | Orthopedic Progress Note ---
Date of Service January 30, 2021 Assessment & Plan (1) Degenerative arthritis of knee, bilateral: Plan: Postop day 5 status post bilateral total knee arthroplasty. PT/OT protocols. Weightbearing as tolerated. DVT prophylaxis-rivaroxaban daily, JUAN Nascimento. Pain management as written. [facility] Authorizations pending. Admission and Anticipated Discharge Date Admission Date: January 27, 2021 Subjective Postop day 5 Patient sitting in her chair at the bedside. pain currently well controlled, rated as 2/10 both knees. No other complaints. Review of Systems Constitutional: no fever and no chills Cardiovascular: no chest pain Gastrointestinal: no nausea and no vomiting Physical Exam Physical Exam: bilateral knees: Incisions remain clean, dry, and intact. Calves are soft and nontender. Neurovascular intact. Toes are mobile. No overt swelling of the ankles at this time. Homans is negative. Constitutional: WD/WN, vitals as above Results & Data ([facility]) Vital Signs (Past 12 Hours) Vital Signs Temp Pulse Pulse Resp BP Pulse Ox 01/30/21 08:25 36.7 C 85 17 106/67 98 01/30/21 00:04 82 109/65 01/29/21 23:33 37.1 C 84 18 93/59 L 92
[2021-01-30] MEDS: traMADol HCL 50 MG TABLET PO PRN (11:42)
--- NOTE | 2021-02-05 09:39 | Discharge Summary ---
Date of Service February 05, 2021 Admission HPI Per Admitting Provider Chief Complaint: bilateral knee pain Primary Care Provider: Dong Lopez Florencia Pulido is a 75 year old female who complains of bilateral knee pain, presents for pre-op evaluation prior to bilateral total knee replacements by Dr Nolasco at [facility]. she complains of pain, decreased range of motion and stiffness in both of her knees. Currently the patient states that the symptoms are moderate-severe. The pain is described as aching, sharp and throbbing. Her symptoms are aggravated by ascending stairs, daily activities, first steps while awake walking. Prior NSAIDs include IBU and Aleve. she has been treated with previous visco and cortisone injections in the past without much relief. Admission Exam Per Admitting Provider Physical Exam: HT: 4ft 11in WT: 72.8kg Constitutional: WD/WN, vitals as above no acute distress Respiratory: normal respiratory effort, lungs clear to auscultation no respiratory distress, no labored breathing and does not use accessory muscles Cardiovascular: RRR, no murmur, no edema Gastrointestinal (Abdomen): normal bowel sounds, soft, nontender, no hepatosplenomegaly Musculoskeletal: Bilateral knee Physical exam Overall patient has varus alignment bilaterally, there is no atrophy or ecchymosis noted, +1 suprapatellar effusion in both knees, positive tenderness to both medial and lateral joint lines right knee, more medial sided tenderness to the left knee. negative patellar apprehension, positive crepitation noted to both knees with active ROM. bilateral knees stable to valgus and varus stress, yahir negative, posterior drawer negative. Range of motion right knee 0/3/110, left knee 0/3/115. lower extremities are neurovascularly intact, calf soft and non tender, DP pulse +2 bilaterally. Principal Diagnosis Djd Bilateral Knees Discharge Data Allergies Allergy/AdvReac Type Severity Reaction Status Date / Time adhesive AdvReac Unknown Skin Verified 01/25/21 07:14 irritation with tape Consultations 01/19/21 15:59 Consult Hospitalist Routine Procedures Performed Operation Date: 01/25/21 08:45 Actual Procedures p Left Knee Total Knee Arthroplasty, Right Knee Total Knee Arthroplasty(Bilateral) - Butch Nolasco DO Ordered Studies 01/25/21 05:00 US - OR guided needle placemen Routine Hospital Course (1) Degenerative arthritis of knee, bilateral: Pt was admitted on the above noted date and had the above noted surgery performed which she tolerated well. On her first postoperative day, she was sitting at the bedside in her chair. She was feeling well. She had been up to the restroom several times. She was having some mild pain in her knees but otherwise was progressing well. Dressings were clean, dry, and intact. Calves are soft and nontender. Neurovascular was intact. Vital signs were stable. Hemoglobin was 11.4. She was started on her physical therapy and Occupational Therapy protocols and continued on DVT prophylaxis and pain management. By her second postoperative day she continued to progress well. She had mild soreness in her knees after just finishing her physical therapy. She denies shortness of breath, chest pain, lightheadedness. Incisions were clean, dry, and intact. Some very mild erythema was noted around the incisions, and for the subcuticular stitch and surgery that she had had. Calves remain soft and nontender. Neurovascular is intact. Discharge [facility] for [facility] if authorization was obtained. Over the next several days authorization was held up due to being on the weekend. During that time, the patient continue remain medically stable as well as orthopedically stable and continue to progress with her physical therapy and occupational therapies. By her fifth postoperative day, she had been approved for [facility] in [place]. She was remaining stable and was felt she be discharged to [facility] for further for therapy and care. Hospitalist service had signed off secondary to the patient remaining stable. Total Time Total Time Spent Total Time Spent (In Minutes): 5 Discharge Plan Discharge Items Patient Disposition: Transfer Inpatient Rehab Fac Reason For Visit: Osteoarthritis, Right Knee, Osteoarthritis Left Kn Discharge Diagnosis: Bilateral knee osteoarthritis Condition on Discharge: Good Activity: Per Instructions section Lifting: Wait until after follow-up appointment Weightbearing: Full weightbearing Weightbearing Comment: As tolerated with walker Non-emergency contact: Surgeon Call non-emergency contact if: your pain is not controlled, your temperature is above 101.5, your wound has increased redness and your wound has increased drainage Follow-up/Referrals: Dong Don [Primary Care Provider] - Diet: Regular Addtl Attending Provider Instructions: ACTIVITY RECOMMENDATIONS: SELF CARE INSTRUCTIONS AFTER TOTAL KNEE REPLACEMENT A. You may need to continue a physical therapy program after discharge from the hospital. There are several options available to you. Your doctor will assist you in selecting the best one for you. 1. An out-patient facility 2 to 3 times a week for therapy or home therapy. 2. Continue working on all exercises taught to you in the hospital. Your goals should be to increase bending of your knee to 90 degrees and beyond and to fully straighten your knee. B. You may progress at your own pace from walking with a walker or crutches to a cane; then to no assistive devices. C. Make walking a part of your daily routine. Be up as much as comfortable with rest periods throughout the day. Rest with leg elevation is very important. Use the ice wrap frequently for the first 3-4 weeks. D. There are no restrictions on activities. You may ride in a car, shop, participate in event decorator and designer and all social activities. E. Wear the long elastic stockings (JUAN hose) 20 hours a day for 2 weeks after surgery. They can be removed several times a day for laundering and for a bath. F. You may shower, no tub baths until cleared by your doctor. SPECIAL CARE INSTRUCTIONS: VERY IMPORTANT TO READ AND REVIEW A. There are a few signs you need to watch for after you are home. Call [facility] if you notice any of the followin. Increased severe knee pain. Some pain is expected especially when you exercise. 2. Increased swelling in your leg or knee; pain or swelling of the calf muscle in either lower leg. 3. Any fluid drainage from the incision. 4. Shortness of breath or chest pain. B. Please call [facility] at if you have any concerns or questions about your operation or recovery. The doctor or his nurse will return your call promptly. C. You must take antibiotics before dental work, bladder, bowel or other surgery. Your doctor will provide you with a permanent care to carry describing this precaution. IMPORTANT: * REMEMBER TO TAKE ASPIRIN, 81 MG, TWICE DAILY FOR 4 WEEKS UNLESS OTHERWISE DIRECTED. THIS IS YOUR BLOOD THINNER. * HIGH RISK PATIENTS MAY BE PRESCRIBED A STRONGER BLOOD THINNER. THIS WILL BE PROVIDED AT DISCHARGE. * CALL IF INCREASED PAIN, REDNESS, DRAINAGE OR FEVER GREATER THAT 101. * WEAR JUAN HOSE 20 HOURS PER DAY FOR 2 WEEKS. * DERMABOND Prineo- This is a mesh tape dressing that is covered with glue. It should remain in place until the incision is properly healed, usually 10-14 days. This dressing is designed to naturally slough off. You may trim the excess mesh tape as it peels off. Incision may be briefly wet in a shower. Dry immediately by blotting with a clean, dry towel. Do not bath or swim until instructed by your doctor. Do not scratch, rub, or pick at the dressing. Do not apply any topical ointments or lotions until dressing is completely removed and/or instructed by your doctor. There may be a small piece of suture material at one end of your incision. Do not pull or trim this. If it is bothersome or catching on clothing, you may cover it with a band-aid. . FOLLOW UP VISIT: If appointment is not already scheduled: Please call [facility] to make a follow-up appointment for 2 weeks after your surgery at . Pending Studies at Discharge: No Stand-Alone Forms: My [facility] Skilled Items Patient informed of condition?: Yes DNR: No Discharge Level of Care: Acute rehab Communicable Disease: No Discharge Prognosis: Stable Lines: None Urinary Catheter: No Medications and DC Order Prescriptions: New acetaminophen [Tylenol Extra Strength] 500 mg Tablet 1,000 mg PO Q8 21 Days Qty: 126 RF: 0 oxycodone 5 mg Tablet 5 - 10 mg PO Q6H PRN (Reason: pain) Qty: 30 RF: 0 Xarelto 10 mg Tablet 10 mg PO DAILY 14 Days Qty: 14 RF: 0 docusate sodium 100 mg Capsule 100 mg PO BID 10 Days Qty: 20 RF: 0 Continued anastrozole [Arimidex] 1 mg Tablet 1 mg PO QPM RF: 0 duloxetine [Cymbalta] 30 mg Capsule,Delayed Release(Dr/Ec) 90 mg PO QPM RF: 0 thyroid (pork) [[place] Thyroid] 30 mg Tablet 30 mg PO QAM RF: 0 Calcium Lactate Otc 1 tab PO QPM RF: 0 Soy Lecithin Otc 3 tab PO QPM RF: 0 Bone Health Packet Otc 1 dose PO QPM RF: 0 Cyrupa Otc 2 tab PO QPM RF: 0 Dnenamin Otc 2 tab PO QPM RF: 0 Ligaplex Otc 3 tab PO QPM RF: 0 Tuna Oil Otc 2 tab PO QPM RF: 0 Iodine Otc 2 tab PO QPM RF: 0 Simplex Multivitamin Otc 2 tab PO QPM RF: 0 Women's Mineral Otc 2 tab PO QPM RF: 0 Discontinued Cbd Oil Otc 1 dose topical QAM RF: 0 aspirin 325 mg Tablet 325 mg PO QPM RF: 0 Discharge Orders: Discharge Order (Routine); Ordered 01/30/21 Ordered By: Alessandro Shultz/Other Patient Handouts: DVT Post Op Prevention Admission Data Admit Date/Time: 01/25/21 12:50 Attending Provider: Butch Nolasco Admit Provider: Butch Nolasco Primary Care Provider: Dong Don Other Providers: Jeane Ramon Other Interventions: Discharge Summary Assessment (RN) Last Done: 01/30/21 13:03
== END 2021-01-30 13:45 | DRG 462 ==
LOC: 3E 06:24 → ASU 06:24